=== PATIENT | female | born 1985 | race Asian ===

== ENCOUNTER → 2022-06-10 | Outpatient (CLI) | payer OTHER ==
[2022-06-10 17:33] LABS: MEAN CORPUSCULAR HEMOGLOBIN 29.6 pg (27.0-33.0); MEAN CORPUSCULAR HGB CONC 31.6 g/dl (32.0-36.5); MEAN CORPUSCULAR VOLUME 93.6 fl (80.0-96.0); PLATELET COUNT, AUTOMATED 284 10^3/uL (150-450); RED BLOOD COUNT 4.06 10^6/uL (4.00-5.40); WHITE BLOOD COUNT 8.3 10^3/uL (4.0-10.0)
[2022-06-10 18:59] LABS: GC DNA AMPLIFICATION NEGATIVE (NEGATIVE)
[2022-06-10 23:04] LABS: HIV 1&2 SCREEN CENTAUR NEGATIVE (NEGATIVE)
[2022-06-10 23:56] LABS: GLUCOSE CHALLENGE TEST 1 HOUR 109 MG/DL (LESS THAN 140)
== END ==
LOC: M PLALAB 13:52
PROVIDERS: ATTEND Advanced Practice Midwife
DX: Z34.83 Encounter for supervision of other normal pregnancy, third trimester (principal)

== ENCOUNTER → 2022-07-05 | Outpatient (REF) | payer OTHER ==
[~2022-07-05] MED LIST: COLA100C5 PO; IBUP80TA PO; PERCOCET PO; PREN1CHW PO; PREN200C PO
== END ==
LOC: M SFHCWAGY 16:57
PROVIDERS: ATTEND Advanced Practice Midwife
DX: Z34.83 Encounter for supervision of other normal pregnancy, third trimester (principal)
CPT/HCPCS: 87081; G0463

== ENCOUNTER → 2022-07-19 | Outpatient (CLI) | payer OTHER ==
[~2022-07-19] MED LIST changes: -COLA100C5 PO; -IBUP80TA PO; -PERCOCET PO; -PREN1CHW PO
== END ==
LOC: M LABSMTC 10:08
PROVIDERS: ATTEND Anesthesiology
DX: Z01.812 Encounter for preprocedural laboratory examination (principal); Z20.822 Contact with and (suspected) exposure to COVID-19

== ENCOUNTER → 2022-12-07 | Outpatient (REF) | payer OTHER ==
[~2022-12-07] MED LIST changes: +COLA100C5 PO; +IBUP80TA PO; +PERCOCET PO; +PREN1CHW PO
== END ==
LOC: M SFHCWAGY 17:26
PROVIDERS: ATTEND Obstetrics & Gynecology
DX: Z12.4 Encounter for screening for malignant neoplasm of cervix (principal)
CPT/HCPCS: 87624; G0123

== ENCOUNTER → 2023-11-23 | Outpatient (REF) | payer OTHER ==
[2023-11-24 13:14] LABS: APPEARANCE, URINE CLEAR (CLEAR); BACTERIA, URINE AUTO NEGATIVE (NEGATIVE); BILIRUBIN, URINE AUTO NEGATIVE (NEGATIVE); BLOOD, URINE BLOOD 2+ (NEGATIVE); COLOR, URINE COLORLESS (YELLOW); GLUCOSE, URINE (UA) AUTO NEGATIVE (NEGATIVE); KETONE, URINE AUTO NEGATIVE (NEGATIVE); LEUKOCYTE ESTERASE, URINE AUTO NEGATIVE (NEGATIVE); NITRITE, URINE AUTO NEGATIVE (NEGATIVE); PROTEIN, URINE AUTO NEGATIVE (NEGATIVE); RBC, URINE AUTO TNTC /HPF (0-3); SPECIFIC GRAVITY URINE AUTO 1.005 (1.002-1.035); SQUAMOUS EPITHELIAL CELL UR AU 0 /HPF (0-6); UROBILINOGEN, URINE AUTO 0.2 mg/dL (0.0-2.0); WBC, URINE AUTO 0 /HPF (0-3)
== END ==
LOC: M SFHCPLAZ 12:33
PROVIDERS: ATTEND Physician Assistant Medical
DX: K59.00 Constipation, unspecified (principal)

== ENCOUNTER → 2023-12-15 | Outpatient (CLI) | payer OTHER | LOC: M PLALAB 16:00 | PROVIDERS: ATTEND Family Medicine | DX: R45.4 Irritability and anger (principal); K59.00 Constipation, unspecified ==